=== PATIENT | male | born 1970 | race Two or more races ===

== ENCOUNTER 2023-06-09 08:13 | Outpatient (CLI) | payer OTHER | END 2023-06-09 08:28 | disposition home or self-care (01) | LOC: MRI 08:13 | PROVIDERS: ATTEND Orthopaedic Surgery Sports Medicine | DX: M25.512 Pain in left shoulder (principal) | CPT/HCPCS: 73221 ==

== ENCOUNTER 2023-08-05 17:20 | Inpatient (IN) | payer OTHER ==
[~2023-08-05] VITALS: Ht 152.4 cm; Wt 46.7 kg
[2023-08-05 20:34] LABS: HEMATOCRIT 34.4 % (39.0-48.0); HEMOGLOBIN 10.8 g/dL (13-16.00); MEAN CELL VOLUME 73.9 fL (80.0-100.00); MEAN CORPUSCULAR HEMOGLOBIN 23.2 pg (27.00-32.0); MEAN CORPUSCULAR HGB CONC 31.4 g/dl (32.0-36.0); PLATELET COUNT 423 K/uL (150-450); RED BLOOD COUNT 4.65 M/uL (4.00-6.00); RED CELL DISTRIBUTION WIDTH 17.3 % (11.5-14.5)
[2023-08-05 20:44] LABS: ABG PH 7.498 (7.35-7.45); ABG PO2 59.2 mmHg (80-100); BASE EXCESS -0.6 mmol/l; BICARBONATE 21.2 mmol/l (23-25); SaO2 92.7 %; Tco2 22.1 mmol/l; allen test SATISFACTORY; puncture site RADIAL RIGHT
[2023-08-05 20:45] LABS: o2 21 %
[2023-08-05 20:53] LABS: ALBUMIN 2.6 gm/dL (3.4-5.0); BILIRUBIN TOTAL 0.41 mg/dL (0.3-1.2); CALCIUM 8.9 mg/dL (8.5-10.1); CREATININE SERUM 0.7 mg/dL (0.70-1.30); GFR 117.52; POTASSIUM 5.4 mEq/L (3.5-5.1); TOTAL PROTEIN 5.6 gm/dL (6.4-8.2)
[2023-08-05 21:00] LABS: D DIMER 2.26 MG/L; PARTIAL THROMBOPLASTIN TIME 36.1 SECONDS (22.0-34.0)
[2023-08-05 21:06] LABS: INR 1.19; PROTHROMBIN TIME 12.3 SECONDS (9.0-11.5)
[2023-08-06 02:55] LABS: ABG PH 7.451 (7.35-7.45); ABG PO2 93.5 mmHg (80-100); ABG pCO2 31.9 mmHg (35-45); BASE EXCESS -1.3 mmol/l; BICARBONATE 21.7 mmol/l (23-25); Tco2 22.7 mmol/l; allen test SATISFACTORY; o2 40 %; puncture site RADIAL RIGHT
[2023-08-06 02:56] LABS: SaO2 97.6 %
[2023-08-06 03:38] LABS: HEMOGLOBIN 9.5 g/dL (13-16.00); MEAN CELL VOLUME 72.5 fL (80.0-100.00); MEAN CORPUSCULAR HEMOGLOBIN 22.9 pg (27.00-32.0); MEAN CORPUSCULAR HGB CONC 31.6 g/dl (32.0-36.0); PLATELET COUNT 359 K/uL (150-450); RED BLOOD COUNT 4.14 M/uL (4.00-6.00); RED CELL DISTRIBUTION WIDTH 17.6 % (11.5-14.5)
[2023-08-06 03:51] LABS: INR 1.26
[2023-08-06 04:04] LABS: BILIRUBIN TOTAL 0.36 mg/dL (0.3-1.2); BILIRUBIN,CONJUGATED 0.15 mg/dL (0.0-0.2); BILIRUBIN,UNCONJUGATED 0.21 mg/dL (0.0-0.6); CHOL HDL RATIO 3.9 (0-5.0); CREATININE SERUM 0.58 mg/dL (0.70-1.30); GLOBULINA 2.9 G/DL (2.4-3.5); PARTIAL THROMBOPLASTIN TIME 41.4 SECONDS (22.0-34.0); POTASSIUM 3.79 mEq/L (3.5-5.1); TOTAL PROTEIN 4.9 gm/dL (6.4-8.2)
[2023-08-06 04:07] LABS: C-REACTIVE PROTEIN 14.1 MG/DL (0.00-0.29)
[2023-08-06 06:12] LABS: ERYTHROCYTE SEDIMENTATION RATE 41 mm/hr
[2023-08-06 06:22] LABS: URINE APPEARANCE CLEAR; URINE BILIRRUBIN MODERATE (NEGATIVE); URINE COLOR YELLOW; URINE GLUCOSE NEGATIVE (NEGATIVE)
[2023-08-06 06:23] LABS: URINE BACTERIA SOME; URINE BLOOD NEGATIVE; URINE LEUKOCYTE NEGATIVE; URINE NITRATE NEGATIVE; URINE PROTEIN NEGATIVE (NEGATIVE); URINE RBC 0-3 /HPF; URINE UROBILINOGEN 0.2 E.U./dl; URINE WBC 0-2 /hpf
[2023-08-06 20:59] LABS: CREATININE SERUM 0.47 mg/dL (0.70-1.30); GFR 186.1; POTASSIUM 3.72 mEq/L (3.5-5.1)
[2023-08-07] MEDS ORDERED: FERROUS SULFAT325 MG (10:34)
[2023-08-07 11:14] LABS: ABG PH 7.448 (7.35-7.45); ABG pCO2 31.6 mmHg (35-45); BASE EXCESS -1.6 mmol/l; SaO2 98.6 %
[2023-08-07 11:15] LABS: BICARBONATE 21.4 mmol/l (23-25); Tco2 22.4 mmol/l; allen test SATISFACTORY; o2 32 %; puncture site RADIAL RIGHT
[2023-08-09 22:06] LABS: quan ag 0.03 IU/mL (.); quan ag 0.07 IU/mL (.); quan mito > 10.00 IU/mL (.); quant nil 0 IU/mL (.)
[2023-08-11 06:10] LABS: HEMATOCRIT 25.1 % (39.0-48.0); MEAN CELL VOLUME 73.6 fL (80.0-100.00); MEAN CORPUSCULAR HEMOGLOBIN 23.4 pg (27.00-32.0); MEAN CORPUSCULAR HGB CONC 31.7 g/dl (32.0-36.0); PLATELET COUNT 236 K/uL (150-450); RED BLOOD COUNT 3.41 M/uL (4.00-6.00); RED CELL DISTRIBUTION WIDTH 16.9 % (11.5-14.5)
[2023-08-11 06:59] LABS: ALBUMIN 1.7 gm/dL (3.4-5.0); BILIRUBIN TOTAL 0.27 mg/dL (0.3-1.2); CALCIUM 6.9 mg/dL (8.5-10.1); CREATININE SERUM 0.37 mg/dL (0.70-1.30); GFR 245.28; GLOBULINA 1.7 G/DL (2.4-3.5); TOTAL PROTEIN 3.4 gm/dL (6.4-8.2)
[2023-08-11 07:24] LABS: POTASSIUM 2.69 mEq/L (3.5-5.1)
[2023-08-11 14:44] LABS: HEMATOCRIT 28.4 % (39.0-48.0); HEMOGLOBIN 9.1 g/dL (13-16.00); MEAN CELL VOLUME 73.9 fL (80.0-100.00); MEAN CORPUSCULAR HEMOGLOBIN 23.6 pg (27.00-32.0); MEAN CORPUSCULAR HGB CONC 32.2 g/dl (32.0-36.0); PLATELET COUNT 256 K/uL (150-450); RED BLOOD COUNT 3.84 M/uL (4.00-6.00)
[2023-08-12 10:54] LABS: FERRITIN 282.6 NG/ML (26-388)
[2023-08-14 07:24] LABS: HEMATOCRIT 27.3 % (39.0-48.0); MEAN CELL VOLUME 73.6 fL (80.0-100.00); MEAN CORPUSCULAR HEMOGLOBIN 23.7 pg (27.00-32.0); MEAN CORPUSCULAR HGB CONC 32.2 g/dl (32.0-36.0); PLATELET COUNT 166 K/uL (150-450); RED CELL DISTRIBUTION WIDTH 17.8 % (11.5-14.5)
[2023-08-14 07:39] LABS: CALCIUM 7.7 mg/dL (8.5-10.1); GFR 385.6; POTASSIUM 3.24 mEq/L (3.5-5.1)
[2023-08-14 07:47] LABS: HEMOGLOBIN 8.8 g/dL (13-16.00)
[2023-08-14 07:49] LABS: CREATININE SERUM 0.25 mg/dL (0.70-1.30)
[2023-08-14 16:10] LABS: igg < 30 mg/dL (603-1613); igg 1 < 16 mg/dL (248-810); igg 2 < 2 mg/dL (130-555); igg 3 < 1 mg/dL (15-102); igg 4 < 1 mg/dL (2-96)
[2023-08-15 10:11] LABS: COMPLEMENT C3 111 mg/dL (82-167); COMPLEMENT C4 42 mg/dL (12-38); IMMUNOGLOBULIN A < 5 mg/dL (90-386)
[2023-08-15 14:11] LABS: IMMUNOGLOBULIN M < 5 mg/dL (20-172)
[2023-08-15 16:07] LABS: kappa lambda r > 0.53 (0.26-1.65); kappa light 0.8 mg/L (3.3-19.4); lambda light < 1.5 mg/L (5.7-26.3)
[2023-08-17 08:10] LABS: BETA-2-MICROGLOBULINA 3.6 mg/L (0.6-2.4)
[2023-08-17 16:07] LABS: hiv 1 < 20 (.)
[2023-08-23 05:43] LABS: COMPLEMENT C1Q 7.9 mg/dL (10.2-20.3)
== END 2023-08-18 18:55 | disposition home or self-care (01) | DRG 871 ==
LOC: ER 17:21 → ICU-2 08-06 01:38 → ICU 08-07 21:50 → MEDI 08-09 20:52
PROVIDERS: General Practice; Internal Medicine; Internal Medicine Hematology & Oncology; Internal Medicine Infectious Disease; ADMIT Specialist; ATTEND Specialist
PROC: BW24YZZ Computerized Tomography (CT Scan) of Chest and Abdomen using Other Contrast (ICD-10-PCS; 2023-08-05)
PROC: BW2FYZZ Computerized Tomography (CT Scan) of Neck using Other Contrast (ICD-10-PCS; 2023-08-05)
PROC: BW21YZZ Computerized Tomography (CT Scan) of Abdomen and Pelvis using Other Contrast (ICD-10-PCS; 2023-08-08)
PROC: 02HV33Z Insertion of Infusion Device into Superior Vena Cava, Percutaneous Approach (ICD-10-PCS; 2023-08-08)
PROC: 0DJ08ZZ Inspection of Upper Intestinal Tract, Via Natural or Artificial Opening Endoscopic (ICD-10-PCS; principal; 2023-08-16)
PROC: 079T3ZX Drainage of Bone Marrow, Percutaneous Approach, Diagnostic (ICD-10-PCS; 2023-08-16)
DX: A41.9 Sepsis, unspecified organism (principal); J18.9 Pneumonia, unspecified organism; R65.21 Severe sepsis with septic shock; J91.8 Pleural effusion in other conditions classified elsewhere; B37.0 Candidal stomatitis; C85.90 Non-Hodgkin lymphoma, unspecified, unspecified site; D84.9 Immunodeficiency, unspecified; E46 Unspecified protein-calorie malnutrition; A49.02 Methicillin resistant Staphylococcus aureus infection, unspecified site; R13.10 Dysphagia, unspecified; R09.02 Hypoxemia; J98.01 Acute bronchospasm; K30 Functional dyspepsia; I95.9 Hypotension, unspecified; D50.9 Iron deficiency anemia, unspecified; R16.1 Splenomegaly, not elsewhere classified; R47.02 Dysphasia; D75.89 Other specified diseases of blood and blood-forming organs

== ENCOUNTER 2025-02-07 21:10 | Inpatient (IN) | payer OTHER ==
[~2025-02-07] VITALS: Ht 165.1 cm; Wt 49.9 kg
[~2025-02-07 21:10] MED LIST: FERROUS SULFAT325 MG
[2025-02-07] MEDS ORDERED: AMPICILLIN SOD (22:09)
[2025-02-07] MEDS ORDERED: LEVOFLOXACIN500 MG (22:09)
--- NOTE | 2025-02-07 22:11 | NUR ---
PTE ALERTA Y ORIENTADO X3 REFIERE HABE RESCUPIDO ZAK EL ITA DE HOY MAS QUE SUFRE DE IMMUNODEFICIENCIA, SE ANUP SV MAS SE UBICA AFUERA POR ORDENES DE
[2025-02-07] MEDS ORDERED: 0.9 % SODIUM CHLORIDE 1,000 ML IV STA (23:31)
[2025-02-08 00:50] LABS: BASO % 0.1 % (0.1-1.2); EOS # 0.00 (0.04-0.54); EOS % 0.0 % (0.7-7.0); LYMPH # 2.50 (1.18-3.74); LYMPH % 30.9 % (19.3-53.1); MEAN PLATELET VOLUME 10.50 fl (9.4-12.4); MONO # 0.38 (0.24-0.82); MONO % 4.7 % (4.7-12.5); NEUT # 5.15 (1.56-6.13); NEUT % 63.8 % (34.0-71.1); RED CELL DISTRIBUTION WIDTH 15.2 % (11.6-14.4)
[2025-02-08 01:11] LABS: URINE APPEARANCE Clear; URINE BILIRRUBIN Negative (NEGATIVE); URINE BLOOD Negative; URINE COLOR Dark Yellow; URINE GLUCOSE Negative (NEGATIVE); URINE KETONE Trace (NEGATIVE); URINE LEUKOCYTE Negative; URINE NITRATE Negative; URINE UROBILINOGEN 1.0 E.U./dl
[2025-02-08 01:15] LABS: URINE BACTERIA 8.3 uL (0.0-1933); URINE EPITHELIAL CELLS 11.2 uL (0.0-38.8); URINE RBC 9.8 uL (0.0-20.8); URINE WBC 6.0 uL (0.0-23.2)
--- NOTE | 2025-02-08 01:21 | NUR ---
SE ORIENTA PTE SOBRE TX MEDICO Y EL MISMO REFIERE ENTENDER Y ACEPTAR. SE CANALIZA Y SE COLECTAN MUESTRAS DE LAB. SE NOTIFICA CT PENDIENTE. SE COLOCAN IV FLUIDS.
[2025-02-08 01:35] LABS: URINE CAST 0.29 uL (0.0-1.40); URINE PROTEIN 100 (NEGATIVE)
[2025-02-08 01:37] LABS: D DIMER 1.1 MG/L
[2025-02-08 01:38] LABS: INR 0.97
[2025-02-08 02:02] LABS: COVID-19 AG NEGATIVE (NEGATIVE)
[2025-02-08 02:05] LABS: ALT/SGPT 33.0 U/L (12-78); AST/SGOT 51.0 U/L (15-37); BILIRUBIN TOTAL 0.36 mg/dL (0.3-1.2); BUN CREA RATIO 19.0 (7.0-25.0); CREATININE SERUM 0.68 mg/dL (0.70-1.30); GLOBULINA 3.2 G/DL (2.4-3.5); GLUCOSE FASTING 95.0 mg/dL (65-100); OSMOLALITY SERUM 281.0 MOSM/KG (275-295)
[2025-02-08 02:06] LABS: GFR 120.63
[2025-02-08] MEDS ORDERED: CEFTRIAXONE SODIUM 1,000 MG VIAL ONE (04:50)
[2025-02-08] MEDS ORDERED: OSELTAMIVIR PHOSPHATE 75 MG CAPSULE PO ONE (04:50)
[2025-02-08] MEDS ORDERED: OSELTAMIVIR PHOSPHATE 75 MG CAPSULE PO STA (04:50)
[2025-02-08] MEDS ORDERED: CEFTRIAXONE SODIUM 1,000 MG VIAL IV STA (04:50)
[2025-02-08 10:56] LABS: ABG PH 7.406 (7.35-7.45); ABG PO2 80.1 mmHg (80-100); BICARBONATE 19.9 mmol/l (23-25)
[2025-02-08] MEDS ORDERED: 0.9 % SODIUM CHLORIDE 1,000 ML IV SCH (11:30)
[2025-02-08] MEDS ORDERED: VANCOMYCIN HCL 1,000 MG VIAL IV SCH (11:33)
[2025-02-08 11:34] LABS: o2 21 %
[2025-02-08] MEDS ORDERED: CEFTRIAXONE SODIUM 1,000 MG VIAL IV SCH (11:34)
[2025-02-08] MEDS ORDERED: AZITHROMYCIN 500 MG VIAL IV SCH (11:34)
[2025-02-08] MEDS ORDERED: OSELTAMIVIR PHOSPHATE 75 MG CAPSULE PO SCH ×2 (11:35→17:00)
[2025-02-08] MEDS ORDERED: ALBUTEROL SULFATE 3 ML/2.5 MG AMPUL.NEB IH SCH (12:00)
[2025-02-08] MEDS ORDERED: VANCOMYCIN HCL 1,000 MG VIAL ONE ×2 (12:30→14:29)
[2025-02-08] MEDS ORDERED: AZITHROMYCIN 500 MG VIAL IV ONE (12:30)
[2025-02-08 13:11] VITALS: BP 80/50
[2025-02-08] MEDS ORDERED: LACTOBACILLUS ACIDOPHILUS 1 CAP CAP PO SCH (17:00)
[2025-02-08] MEDS ORDERED: VANCOMYCIN HCL 5 MG/ML REDILUIDO IV SCH (17:00)
[2025-02-08 17:04] VITALS: BP 82/51; O2SAT 98
[2025-02-08 21:40] VITALS: BP 90/60; O2SAT 95
[2025-02-09 01:32] VITALS: BP 107/54; O2SAT 97
[2025-02-09 08:02] LABS: BASO % 0.2 % (0.1-1.2); EOS # 0.00 (0.04-0.54); EOS % 0.0 % (0.7-7.0); LYMPH # 1.95 (1.18-3.74); LYMPH % 43.3 % (19.3-53.1); MEAN PLATELET VOLUME 9.90 fl (9.4-12.4); MONO # 0.25 (0.24-0.82); MONO % 5.6 % (4.7-12.5); NEUT # 2.24 (1.56-6.13); NEUT % 49.8 % (34.0-71.1); RED CELL DISTRIBUTION WIDTH 15.3 % (11.6-14.4)
[2025-02-09 08:13] LABS: INR 0.95
[2025-02-09 08:27] LABS: ALT/SGPT 25 U/L (12-78); AST/SGOT 36 U/L (15-37); BILIRUBIN TOTAL 0.26 mg/dL (0.3-1.2); BILIRUBIN,CONJUGATED < 0.10 mg/dL (0.0-0.2); BUN CREA RATIO 18 (7.0-25.0); CHOL HDL RATIO 4.1 (0-5.0); CREATININE SERUM 0.40 mg/dL (0.70-1.30); GFR 222.52; GLUCOSE FASTING 96 mg/dL (65-100); HDL 29 mg/dl (40-60); LDL 61 mg/dl (0-130); OSMOLALITY SERUM 288 MOSM/KG (275-295); PROSTATIC SPECIFIC ANTIGEN 0.725 NG/ML (0.010-4.00); TSH 1.790 uIU/mL (0.358-3.74); VLDL 29 (0-39)
[2025-02-09 08:30] VITALS: BP 90/59; O2SAT 98
[2025-02-09] MEDS ORDERED: CEFTRIAXONE SODIUM 2,000 MG VIAL IV SCH (09:00)
[2025-02-09 09:02] LABS: ERYTHROCYTE SEDIMENTATION RATE 32 mm/hr (0-20)
[2025-02-09] MEDS ORDERED: AZITHROMYCIN 500 MG VIAL IV ONE (10:26)
[2025-02-09] MEDS ORDERED: AZITHROMYCIN 500 MG VIAL IV SCH (12:00)
[2025-02-09 18:59] VITALS: BP 90/58; O2SAT 96
[2025-02-09 20:06] LABS: URINE APPEARANCE Clear; URINE BILIRRUBIN Negative (NEGATIVE); URINE BLOOD Negative; URINE COLOR Yellow; URINE GLUCOSE Negative (NEGATIVE); URINE KETONE Negative (NEGATIVE); URINE LEUKOCYTE Negative; URINE NITRATE Negative; URINE PROTEIN Negative (NEGATIVE); URINE UROBILINOGEN 1.0 E.U./dl
[2025-02-09 20:10] LABS: URINE EPITHELIAL CELLS 1.8 uL (0.0-38.8); URINE RBC 7.1 uL (0.0-20.8); URINE WBC 2.7 uL (0.0-23.2)
[2025-02-09 20:19] LABS: URINE BACTERIA 3.5 uL (0.0-1933); URINE CAST 0.00 uL (0.0-1.40)
[2025-02-10 00:34] VITALS: BP 101/54; O2SAT 97
[2025-02-10] MEDS ORDERED: ALBUTEROL SULFATE 3 ML/2.5 MG AMPUL.NEB IH ONE (08:47)
[2025-02-10 08:51] VITALS: BP 84/47; O2SAT 97
[2025-02-10] MEDS ORDERED: EPOETIN ALFA-EPBX 10,000 UNIT/ML VIAL (Retacrit) SUBCUTANEO SCH (09:00)
[2025-02-10] MEDS ORDERED: VANCOMYCIN HCL 1,000 MG VIAL IV SCH (17:00)
[2025-02-10] MEDS ORDERED: VANCOMYCIN HCL 1,000 MG VIAL ONE ×2 (17:01→22:08)
[2025-02-10 17:16] VITALS: BP 93/60; O2SAT 99
[2025-02-11 01:49] VITALS: BP 104/53; O2SAT 98
[2025-02-11 08:49] VITALS: BP 87/48; O2SAT 97
[2025-02-11] MEDS ORDERED: VANCOMYCIN HCL 1,000 MG VIAL ONE (16:17)
[2025-02-11] MEDS ORDERED: IMMUN GLOB G(IGG)/GLY/IGA OV50 20 G/200 ML VIAL IV ONE (17:00)
[2025-02-11 17:25] VITALS: BP 95/60; O2SAT 98
[2025-02-12] VITALS: BP 92/60; O2SAT 96
[2025-02-12] MEDS ORDERED: VANCOMYCIN HCL 1,000 MG VIAL ONE (02:36)
[2025-02-12 09:16] VITALS: BP 104/67; O2SAT 96
[2025-02-12] MEDS ORDERED: VANCOMYCIN HCL 5 MG/ML REDILUIDO IV SCH (17:00)
[2025-02-12 17:36] VITALS: BP 96/62; O2SAT 96
[2025-02-13 01:16] VITALS: BP 110/72; O2SAT 99
[2025-02-13 12:07] LABS: BASO % 0.3 % (0.1-1.2); EOS # 0.01 (0.04-0.54); EOS % 0.3 % (0.7-7.0); LYMPH # 0.89 (1.18-3.74); LYMPH % 26.7 % (19.3-53.1); MEAN PLATELET VOLUME 9.70 fl (9.4-12.4); MONO # 0.30 (0.24-0.82); MONO % 9.0 % (4.7-12.5); NEUT # 2.06 (1.56-6.13); NEUT % 61.9 % (34.0-71.1); RED CELL DISTRIBUTION WIDTH 15.8 % (11.6-14.4)
[2025-02-13 13:11] LABS: ALT/SGPT 23.0 U/L (12-78); AST/SGOT 19.0 U/L (15-37); BILIRUBIN TOTAL 0.32 mg/dL (0.3-1.2); BUN CREA RATIO 17.0 (7.0-25.0); CREATININE SERUM 0.46 mg/dL (0.70-1.30); GFR 189.38; GLOBULINA 2.2 G/DL (2.4-3.5); GLUCOSE FASTING 94.0 mg/dL (65-100); OSMOLALITY SERUM 287.0 MOSM/KG (275-295)
[2025-02-13 16:00] VITALS: BP 93/53; O2SAT 97
[2025-02-14 00:29] VITALS: BP 105/64; O2SAT 99
[2025-02-14 08:00] VITALS: BP 89/51; O2SAT 96
[2025-02-14] MEDS ORDERED: levoFLOXacin IN DEXTROSE 5 % 150 ML IV SCH (09:00)
[2025-02-14] MEDS ORDERED: AZITHROMYCIN 500 MG VIAL IV SCH (10:45)
[2025-02-14 16:34] VITALS: BP 97/63; O2SAT 96
[2025-02-15 01:13] VITALS: BP 132/83; O2SAT 98
[2025-02-15] MEDS ORDERED: AZITHROMYCIN 500 MG VIAL IV ONE ×2 (07:56→08:30)
[2025-02-15 08:00] VITALS: BP 97/61; O2SAT 96
[2025-02-15] MEDS ORDERED: CEFTRIAXONE SODIUM 2,000 MG VIAL IV SCH (09:00)
[2025-02-15] MEDS ORDERED: ZITHROMAX500 MG PO (15:25)
[2025-02-15] MEDS ORDERED: PROBICHEW 21 B1 EACH PO (15:25)
== END 2025-02-15 16:32 | disposition home or self-care (01) | DRG 194 ==
LOC: ER 21:10 → SURH 02-08 11:53
PROVIDERS: General Practice; ADMIT Internal Medicine; ATTEND Internal Medicine
PROC: BW24ZZZ Computerized Tomography (CT Scan) of Chest and Abdomen (ICD-10-PCS; 2025-02-07)
PROC: BW21YZZ Computerized Tomography (CT Scan) of Abdomen and Pelvis using Other Contrast (ICD-10-PCS; 2025-02-07)
PROC: 8E0ZXY6 Isolation (ICD-10-PCS; 2025-02-08)
PROC: 3E0F7GC Introduction of Other Therapeutic Substance into Respiratory Tract, Via Natural or Artificial Opening (ICD-10-PCS; 2025-02-10)
PROC: 30233S1 Transfusion of Nonautologous Globulin into Peripheral Vein, Percutaneous Approach (ICD-10-PCS; principal; 2025-02-11)
DX: J10.00 Influenza due to other identified influenza virus with unspecified type of pneumonia (principal); D80.2 Selective deficiency of immunoglobulin A [IgA]; J47.1 Bronchiectasis with (acute) exacerbation; D83.9 Common variable immunodeficiency, unspecified; D46.1 Refractory anemia with ring sideroblasts; D69.6 Thrombocytopenia, unspecified; K52.9 Noninfective gastroenteritis and colitis, unspecified